=== PATIENT | male | born 1980 | race Caucasian/White ===

== ENCOUNTER 2018-01-17 13:11 | Outpatient (REF) | payer BC, SELFPAY ==
[2018-01-17 13:45] LABS: Cholesterol 168 mg/dL (50-200); Glucose 86 mg/dL (70-100); HDL Cholesterol 73 mg/dL (40-60); LDL CHOLESTEROL 83 mg/dL (<100); Triglyceride 49 mg/dL (30-150)
== END 2018-01-17 13:31 ==
LOC: NCHCN 13:11
PROVIDERS: PCP Nurse Practitioner Family; Visit Provider Nurse Practitioner Family
DX: Z00.00 Encounter for general adult medical examination without abnormal findings (principal); Z13.1 Encounter for screening for diabetes mellitus; Z13.220 Encounter for screening for lipoid disorders; M67.40 Ganglion, unspecified site; Z72.0 Tobacco use; R09.81 Nasal congestion; L30.9 Dermatitis, unspecified
CPT/HCPCS: 80061; 82947; 83721

== ENCOUNTER 2019-03-30 08:14 | Day surgery (SDC) | payer BC, SELFPAY ==
[2019-03-30 08:20] VITALS: BP 129/79; PULSE 52; RESP 16; TEMP 36.7; O2SAT 97
[2019-03-30] MEDS: Lactated Ringers 1,000 ML 80 ML IV (08:52)
[2019-03-30] MEDS: ceFAZolin 1 GM/50 ML BAG IVPB (10:37)
--- NOTE | 2019-03-30 11:19 | PDOC.DSDIS_ITS ---
Discharge Plan Disposition Patient Disposition: HOME Condition: Good Discharge Details Reason For Visit: Excision of Volar Wrist Ganglion Cyst R Attending Provider: Daniel Merchant Primary Care Provider: Kylie Panchal Home Meds and New Rx's Prescriptions: New hydrocodone-acetaminophen 5-325 mg tablet 1 tab PO Q6H MDD pain PRN (Reason: pain) Qty: 7 RF: 0 Continued loratadine [Allergy Relief (loratadine)] 10 mg tablet 10 mg PO DAILY RF: 0 fluticasone propionate [Allergy Relief (fluticasone)] 50 mcg/actuation spray,suspension 2 spray SHO DAILY RF: 0 Discharge Instructions Additional Instructions: Try to elevate R hand above heart level as much as possible overnite tonite. Wiggle fingers R hand 10 times/hour when awake. Keep dressings and splint dry and intact until return. Return to 's office in 2 weeks. May use R hand as much as pain allows. Take tylenol or ibuprofen for mild pain. Take hydrocodone for breakthru pain, if needed. Referrals: Daniel Merchant MD [ [facility] STAFF PHYSICIAN] - (f/u in 2 weeks.) Equipment/Supplies: Splint Activity:: Activity as Tolerated Remove Dressings/Wound Care:: Do Not Remove Shower/Bathe:: Cover Diet:: As Tolerated Discharge Orders Discharge Orders: Discharge Order (Routine); Ordered 03/30/19 Ordered By: Daniel Merchant DS: Diagnosis Discharge Diagnosis (1) Ganglion cyst of dorsum of right wrist: Status: Acute
[2019-03-30 12:00] VITALS: BP 115/76; PULSE 48; RESP 16; TEMP 36.5; O2SAT 97
--- NOTE | 2019-04-01 06:49 | ROE_ITS ---
REPORT OF OPERATIVE PROCEDURE DATE OF SURGERY: March 30, 2019 PREOPERATIVE DIAGNOSIS: Volar wrist ganglion cyst, right. POSTOPERATIVE DIAGNOSIS: Volar wrist ganglion cyst, right. PROCEDURE: Excision of volar wrist ganglion cyst on the right. ANESTHESIA: IV regional, Isra Joe CRNA SURGEON: Daniel Merchant M.D. INDICATIONS: This is a 38-year-old white male, right dominant individual, who has developed a painful volar wrist ganglion cyst on the right. On my examination, the cyst appeared to be fairly superficial and probably arising from the tendon sh eath of the flexor carpi radialis tendon rather than from the right wrist joint. I explained to the p atient that if the cyst was arising from the tendon sheath that there was a lower chance of recurrenc e. If the cyst was arising from the wrist, his recurrence rate following incision would be around 10% . The patient understood the risks and complications and wished to have the cyst excised. PROCEDURE: The patient was taken to the Operating Room on March 30, 2019. The patient was placed supine on t he operating table. An IV regional anesthetic is administered to the right upper extremity. Once good anesthesia was obtained, the right hand, wrist and forearm were prepped and draped free in the u sual sterile fashion. I made an incision slightly curved along the ulnar side of the ganglion cyst. The incision curved on the ulnar side of the ganglion cyst and then extended proximally directly over the flexor carpi radialis tendon. I carried it distally in a zig zag fashion over the flexor creases of the wrist. Full thickness flap of skin was developed until I was able to see the margins of the g anglion cyst circumferentially. The cyst was arising from the sheath of the flexor carpi radialis ten don. I continued the circumferential dissection until I was able to excise the cyst from the flexor s alpesh. I then split the flexor sheath of the flexor carpi radialis to prevent recurrence. Subcutaneou s veins were cauterized. The radial artery was visualized and was intact and not involved in the gang lion cyst. The wounds were irrigated with saline solution. The wound margins were infiltrated with 0.5% Marcaine solution. The skin edges were approximated with simple interrupted #4-0 Nylon sutures. The wound was dressed with Xeroform gauze, sterile gauze, 4 x 4s, an ABD Pad, and wrapped with Kerlix bandage, fol lowed an Juan Daniel bandage. A commercial volar wrist cockup splint was applied. The patient's IV regional anesthesia was reversed without complications. He was discharged to Recovery Room in good condition . The patient was discharged home from the Day Surgery Unit fully recovered from his IV regional anesth esia. He was given instructions to keep his splint and dressings dry and intact until he follows up with Dr. Merchant in two weeks. He is to cover the splint with a plastic bag to shower. He is encourage d to move his fingers 10 times an hour while awake. He should elevate his right hand above heart leve l as much as possible overnight tonight. He may use his right hand as much as discomfort allows. He i s instructed to take Tylenol or ibuprofen for mild pain. He is given a prescription for breakthrough pain of hydrocodone with APAP 5/325 1 tablet every 6 hours as needed.
== END 2019-03-30 12:37 | disposition home or self-care (01) ==
PROVIDERS: PCP Nurse Practitioner Family; Visit Provider Orthopaedic Surgery
PROC: (CPT 25111; principal; 2019-03-30 10:15)
DX: M67.431 Ganglion, right wrist (principal)
CPT/HCPCS: 25111; J0690; J1885; J2250; L3908

== ENCOUNTER 2024-05-26 16:57 | Outpatient (REF) | payer OTHER, SELFPAY ==
[2024-05-26 19:36] LABS: Abs Immature Grans 0.02 10^3/uL (0.0-0.06); Absolute Basophil Count 0.07 10^3/uL (0.0-0.2); Absolute Eosinophil Count 0.08 10^3/uL (0.0-0.7); Absolute Lymphocyte Count 1.44 10^3/uL (1.2-3.4); Absolute Monocyte Count 0.66 10^3/uL (0.1-0.8); Absolute Neutrophil Count 4.49 10^3/uL (1.2-6.7); Eosinophils % 1.2 %; HCT 45.6 % (40.0-50.0); HGB 15.3 g/dL (13.5-17.5); Immature Grans % 0.3 %; Lymphocytes % 21.3 %; MCH 31.8 pg (27.0-33.0); MCHC 33.6 % (32.0-36.0); MCV 95 fL (80-95); MPV 11.4 fL (8.0-11.0); Monocytes % 9.8 %; Neutrophils % 66.4 %; Platelet Count 273 10^3/uL (130-400); RBC 4.81 10^6/uL (4.36-5.78); RDW 12.5 % (11.8-14.1); RDW-SD 43.7 fL; WBC 6.76 10^3/uL (4.4-10.8)
[2024-05-26 19:53] LABS: Hemoglobin A1C 5.6 % (<5.7)
[2024-05-26 20:02] LABS: ALT 44 U/L (16-63); AST 30 U/L (15-37); Albumin 4.8 g/dL (3.4-5.0); Alkaline Phosphatase 85 U/L (46-116); Anion Gap 12.3 mmol/L (3-11); BUN 10 mg/dL (7-18); Bilirubin, Total 0.6 mg/dL (0.2-1.0); CO2 26.7 mmol/L (21.0-32.0); CREATININE 0.7 mg/dL (0.70-1.30); Calcium 9.8 mg/dL (8.5-10.1); Calculated LDL 139 mg/dL (<100); Chloride 104 mmol/L (98-107); Cholesterol 236 mg/dL (<200); Estimated GFR 116.52 (mL/min/1.73m2); Glucose 83 mg/dL (74-106); HDL Cholesterol 86 mg/dL (>or=40); Potassium 4.5 mmol/L (3.5-5.1); Sodium 143 mmol/L (136-145); TSH 0.91 uIU/mL (0.36-3.74); Total Protein 7.7 g/dL (6.4-8.2); Triglyceride 59 mg/dL (<150)
== END 2024-05-26 16:58 | disposition home or self-care (01) ==
LOC: NCHCN 16:57
PROVIDERS: Visit Provider Family Medicine
DX: Z00.00 Encounter for general adult medical examination without abnormal findings (principal)
CPT/HCPCS: 80053; 80061; 83036; 84443; 85025